=== PATIENT | female | born 1975 | race Two or more races ===

== ENCOUNTER 2023-07-27 13:49 | Emergency (ER) | payer OTHER ==
[~2023-07-27] VITALS: Ht 160 cm; Wt 88.0 kg
[2023-07-27 15:33] VITALS: BP 134/72; TEMP 98.3; O2SAT 98
== END 2023-07-27 15:34 | disposition home or self-care (01) ==
LOC: ER 13:54
DX: S01.132A Puncture wound without foreign body of left eyelid and periocular area, initial encounter (principal); F12.10 Cannabis abuse, uncomplicated; X58.XXXA Exposure to other specified factors, initial encounter; Y93.89 Activity, other specified; Y92.89 Other specified places as the place of occurrence of the external cause; Y99.8 Other external cause status

== ENCOUNTER 2025-01-31 11:16 | Emergency (ER) | payer MEDICAID, OTHER ==
[~2025-01-31] VITALS: Ht 160 cm; Wt 83.9 kg
[2025-01-31] MEDS ORDERED: KETOROLAC TROMETHAMINE 15 MG/ML VIAL ONE (14:12)
[2025-01-31] MEDS ORDERED: FAMOTIDINE (20 MG) 20 MG TABLET ONE (14:13)
[2025-01-31] MEDS ORDERED: BACLOFEN (10 MG) 10 MG TABLET ONE (14:13)
[2025-01-31] MEDS: KETOROLAC TROMETHAMINE 15 MG/ML VIAL IM ONE (14:22)
[2025-01-31] MEDS: FAMOTIDINE (20 MG) 20 MG TABLET PO ONE (14:23)
[2025-01-31] MEDS: BACLOFEN (10 MG) 10 MG TABLET PO ONE (14:23)
[2025-01-31 14:59] LABS: APPEARANCE,URINE SLIGHTLY CLOUDY (CLEAR); BLOOD, URINE TRACE-INTA Ery/uL (NEGATIVE); LEUKOCYTE ESTERASE ,URINE NEGATIVE (NEGATIVE); NITRITE, URINE NEGATIVE (NEGATIVE); UGLUCOSE NEGATIVE (NEGATIVE)
[2025-01-31 15:03] LABS: PREGNANCY TEST URINE QUAL NEGATIVE (NEGATIVE)
[2025-01-31] MEDS ORDERED: IBUP-1490 PO (15:40)
[2025-01-31] MEDS ORDERED: LIDO30AD10 TP (15:40)
[2025-01-31] MEDS ORDERED: METH-649 PO (15:40)
[2025-01-31 15:46] VITALS: BP 135/72; TEMP 98.5; O2SAT 100
[2025-01-31 15:51] LABS: SQUAMOUS EPITHELIAL CELL,UR Many /HPF (None Seen)
[2025-01-31 15:52] LABS: ADD URINE CULTURE YES
[2025-02-06] MEDS ORDERED: IBUP-2314 PO (10:44)
== END 2025-01-31 15:46 | disposition home or self-care (01) ==
LOC: ER 11:16
DX: M54.50 Low back pain, unspecified (principal); F12.90 Cannabis use, unspecified, uncomplicated; R10.20 Pelvic and perineal pain unspecified side
CPT/HCPCS: 99283; 96372; 87086; 84703; 81001; J1885